=== PATIENT | female | born 1960 | race Caucasian/White ===

== ENCOUNTER 2018-01-13 16:23 | Emergency (ER) | payer MEDICARE, MEDICAID ==
[~2018-01-13] VITALS: Ht 162.6 cm; Wt 70.0 kg
[~2018-01-13 16:23] MED LIST: GABA-338 PO; LEVA15HF4 IH; LISI-600 PO; ONDA8TAB9 PO; OXYC-147 PO; SIMV10TA2 PO
[2018-01-13] MEDS ORDERED: orphenadrine citrate 60mg/2ml inj. IM ONE (16:30)
[2018-01-13] MEDS ORDERED: ORPH100T2 PO (16:30)
[2018-01-13] MEDS ORDERED: HYDROmorphone 1 mg/ml syringe IM ONE (16:30)
[2018-01-13 17:48] VITALS: BP 144/74
== END 2018-01-13 17:50 | disposition home or self-care (01) ==
LOC: ER 16:24
DX: M54.5 Low back pain (principal); G89.29 Other chronic pain; R20.2 Paresthesia of skin; R20.0 Anesthesia of skin; I10 Essential (primary) hypertension; Z90.710 Acquired absence of both cervix and uterus; Z98.890 Other specified postprocedural states; Z88.5 Allergy status to narcotic agent; Z88.8 Allergy status to other drugs, medicaments and biological substances; Z88.6 Allergy status to analgesic agent; Z79.899 Other long term (current) drug therapy
CPT/HCPCS: 96372; 99284; J1170; J2360

== ENCOUNTER 2018-09-21 11:38 | Emergency (ER) | payer MEDICARE, MEDICAID ==
[~2018-09-21] VITALS: Ht 162.6 cm; Wt 74.8 kg
[~2018-09-21 11:38] MED LIST changes: +ORPH100T2 PO
[2018-09-21] MEDS ORDERED: diazepam 5mg tablet PO ONE (12:40)
[2018-09-21] MEDS ORDERED: ketorolac trometh inj. 60 MG/2 ML VIAL IM ONE (12:55)
--- NOTE | 2018-09-21 13:08 | NUR ---
MEDICATED PT PER ORDERS, SOFT COLLAR PLACED BY [facility] TH[facility]ER PER ORDERS
[2018-09-21 13:46] VITALS: BP 136/109
== END 2018-09-21 13:49 | disposition home or self-care (01) ==
LOC: ER 11:39
DX: M62.838 Other muscle spasm (principal); M25.512 Pain in left shoulder; I10 Essential (primary) hypertension; G89.29 Other chronic pain; Z90.710 Acquired absence of both cervix and uterus; Z98.890 Other specified postprocedural states; Z88.8 Allergy status to other drugs, medicaments and biological substances; Z79.899 Other long term (current) drug therapy
CPT/HCPCS: 96372; 99283; J1885

== ENCOUNTER 2019-07-30 17:14 | Emergency (ER) | payer MEDICARE, MEDICAID ==
[~2019-07-30] VITALS: Ht 162.6 cm; Wt 81.9 kg
[2019-07-30] MEDS ORDERED: diphenhydrAMINE 50 mg/ml inj IV ONE (18:00)
[2019-07-30] MEDS ORDERED: morphine 4 MG/ML inj SYRINge IV ONE (18:00)
[2019-07-30] MEDS ORDERED: proCHLORperazine 10 MG/2 ml inj IV ONE (18:00)
[2019-07-30 18:53] LABS: BASOPHILS # (AUTO) 0.1 X10'3 (0-0.2); BASOPHILS % (AUTO) 0.7 % (0-1); EOSINOPHILS % (AUTO) 0.6 % (0-6); HEMATOCRIT 43.9 % (35.0-45.0); HEMOGLOBIN 14.7 g/dl (12.0-16.0); LYMPHOCYTES # (AUTO) 2.3 X10'3 (1.1-4.8); LYMPHOCYTES % (AUTO) 29.1 % (21-51); MEAN CORPUSCULAR HEMOGLOBIN 30.8 PG (27.0-31.0); MEAN CORPUSCULAR HGB CONC 33.5 g/dL (33.0-36.5); MEAN CORPUSCULAR VOLUME 91.7 FL (78-98); MONOCYTES # (AUTO) 0.5 X10'3 (0-0.9); MONOCYTES % (AUTO) 6.5 % (2-12); NEUTROPHILS % (AUTO) 63.1 % (42-75); PLATELET COUNT 276 X10'3 (140-440); RED BLOOD COUNT 4.79 X10'6 (4.20-5.60); RED CELL DISTRIBUTION WIDTH 12.7 % (11.5-14.5)
[2019-07-30 19:04] LABS: CLARITY,URINE SLIGHTLY CLOUDY (Clear); COLOR,URINE STRAW (Yellow); GLUCOSE, URINE NEGATIVE (Neg); KETONES,URINE NEGATIVE (Neg); LEUKOCYTE ESTERASE ,URINE TRACE (Neg); NITRITES, URINE NEGATIVE (Neg); OCCULT BLOOD,URINE NEGATIVE (Neg); PH,URINE 5.5 (4.8-8.0); PROTEIN,URINE NEGATIVE (Neg); UROBILINOGEN,URINE 0.2 E.U/dL (0.2-1.0)
[2019-07-30 19:06] LABS: UA COLLECTION TYPE CLN CATCH MIDSTREAM
[2019-07-30 19:08] LABS: ALANINE AMINOTRANSFERASE 11 U/L (12-78); ALBUMIN 3.7 G/DL (3.4-5.0); ALBUMIN/GLOBULIN RATIO 1.1 (1.1-1.5); ALKALINE PHOSPHATASE 74 IU/L (46-116); ANION GAP 7 (8-16); ASPARTATE AMINO TRANSFERASE 19 U/L (10-37); BILIRUBIN,TOTAL 0.2 MG/DL (0.1-1.0); BLOOD UREA NITROGEN 6 MG/DL (7-18); BUN/CREATININE RATIO 7.6 (6.6-38.0); CALCIUM 9.8 MG/DL (8.5-10.1); CHLORIDE 106 MMOL/L (99-107); CREATININE 0.79 MG/DL (0.40-0.90); GLUCOSE 96 MG/DL (70-104); LIPASE 92 U/L (73-393); POTASSIUM 3.7 MMOL/L (3.5-5.1); SODIUM 144 MMOL/L (135-145); TOTAL CARBON DIOXIDE 30.7 MMOL/L (24-32); eGFR 74 ML/MIN
[2019-07-30 19:17] LABS: RBC,URINE NONE SEEN /HPF (0-2); WBC,URINE 0-4 /HPF (0-4)
[2019-07-30 19:18] LABS: BACTERIA,URINE NONE SEEN /HPF (Neg); SQUAMOUS EPITHELIAL CELL,UR FEW /LPF (FEW)
[2019-07-30] MEDS ORDERED: metroNIDAZOLE-Flagyl 500mg/NS 100 ML IV ONE (19:50)
[2019-07-30] MEDS ORDERED: ciprofloxacin 250mg tablet PO ONE (19:50)
[2019-07-30] MEDS ORDERED: CIPR-259 PO (20:56)
[2019-07-30] MEDS ORDERED: METR-159 PO (20:56)
[2019-07-30] MEDS ORDERED: L. R1CAP4 PO (20:57)
[2019-07-30 21:26] VITALS: BP 127/98
== END 2019-07-30 21:25 | disposition home or self-care (01) ==
LOC: ER 17:15
DX: K52.9 Noninfective gastroenteritis and colitis, unspecified (principal); I10 Essential (primary) hypertension; G89.29 Other chronic pain; Z90.710 Acquired absence of both cervix and uterus; Z90.89 Acquired absence of other organs; Z98.890 Other specified postprocedural states; Z87.891 Personal history of nicotine dependence; Z88.5 Allergy status to narcotic agent; Z88.8 Allergy status to other drugs, medicaments and biological substances; Z79.899 Other long term (current) drug therapy
CPT/HCPCS: 36415; 74177; 80053; 81001; 83690; 85025; 87088; 96365; 96375; 99285; J0780; J1200; J2270; J3490

== ENCOUNTER 2019-08-29 14:13 | Outpatient (CLI) | payer MEDICARE, MEDICAID ==
[~2019-08-29] VITALS: Ht 162.6 cm; Wt 77.1 kg
[~2019-08-29 14:13] MED LIST changes: +L. R1CAP4 PO; +iohexol 300mg/ml 100ml inj. ONE
[2019-08-29] MEDS ORDERED: albuterol 2.5 MG/3 ML nebule NEB ONE (14:55)
== END 2019-08-29 23:59 | disposition home or self-care (01) ==
LOC: RT 14:13
PROVIDERS: ATTEND Family Medicine
DX: J98.8 Other specified respiratory disorders (principal)
CPT/HCPCS: 94060; 94729; 94760; Q9967

== ENCOUNTER 2019-12-13 14:06 | Emergency (ER) | payer MEDICARE, MEDICAID ==
[~2019-12-13] VITALS: Ht 162.6 cm; Wt 78.0 kg
[~2019-12-13 14:06] MED LIST changes: -iohexol 300mg/ml 100ml inj. ONE
[2019-12-13 14:59] LABS: BASOPHILS # (AUTO) 0.1 X10'3 (0-0.2); BASOPHILS % (AUTO) 0.8 % (0-1); EOSINOPHILS # (AUTO) 0.1 X10'3 (0-0.9); EOSINOPHILS % (AUTO) 0.5 % (0-6); HEMOGLOBIN 15.7 g/dl (12.0-16.0); LYMPHOCYTES # (AUTO) 2.6 X10'3 (1.1-4.8); LYMPHOCYTES % (AUTO) 22.2 % (21-51); MEAN CORPUSCULAR HEMOGLOBIN 31.3 PG (27.0-31.0); MEAN CORPUSCULAR VOLUME 91.9 FL (78-98); MEAN PLATELET VOLUME 8.7 FL (7.4-10.4); MONOCYTES # (AUTO) 0.6 X10'3 (0-0.9); MONOCYTES % (AUTO) 5.4 % (2-12); NEUTROPHILS # (AUTO) 8.2 X10'3 (1.8-7.7); NEUTROPHILS % (AUTO) 71.1 % (42-75); PLATELET COUNT 302 X10'3 (140-440); RED CELL DISTRIBUTION WIDTH 13.3 % (11.5-14.5); WHITE BLOOD COUNT 11.6 X10'3 (4.5-11.0)
[2019-12-13 15:21] LABS: ALANINE AMINOTRANSFERASE 23 U/L (12-78); ALBUMIN 3.9 G/DL (3.4-5.0); ALKALINE PHOSPHATASE 77 IU/L (46-116); ANION GAP 9 (8-16); ASPARTATE AMINO TRANSFERASE 16 U/L (10-37); BILIRUBIN,TOTAL 0.2 MG/DL (0.1-1.0); BLOOD UREA NITROGEN 6 MG/DL (7-18); BUN/CREATININE RATIO 8.2 (6.6-38.0); CALCIUM 9.6 MG/DL (8.5-10.1); CHLORIDE 104 MMOL/L (99-107); CREATININE 0.73 MG/DL (0.40-0.90); GLUCOSE 105 MG/DL (70-104); LIPASE 82 U/L (73-393); POTASSIUM 4.2 MMOL/L (3.5-5.1); SODIUM 143 MMOL/L (135-145); TOTAL CARBON DIOXIDE 29.6 MMOL/L (24-32); TOTAL PROTEIN 7.7 G/DL (6.4-8.2); eGFR 82 ML/MIN
[2019-12-13] MEDS ORDERED: morphine 4 MG/ML inj SYRINge IV ONE (16:10)
[2019-12-13] MEDS ORDERED: ondansetron/PF 4mg/2ml inj IV ONE (16:10)
[2019-12-13] MEDS ORDERED: normal saline 1000ml 1,000 ML IV ONE (16:10)
[2019-12-13 17:05] LABS: CLARITY,URINE CLEAR (Clear); COLOR,URINE YELLOW (Yellow); GLUCOSE, URINE NEGATIVE (Neg); KETONES,URINE NEGATIVE (Neg); LEUKOCYTE ESTERASE ,URINE NEGATIVE (Neg); NITRITES, URINE NEGATIVE (Neg); OCCULT BLOOD,URINE NEGATIVE (Neg); PROTEIN,URINE NEGATIVE (Neg); UROBILINOGEN,URINE 0.2 E.U/dL (0.2-1.0)
[2019-12-13 17:06] LABS: UA COLLECTION TYPE CLN CATCH MIDSTREAM
[2019-12-13] MEDS ORDERED: AMOX-422 PO (17:28)
[2019-12-13] MEDS ORDERED: METR500T PO (17:28)
[2019-12-13] MEDS ORDERED: LACT1CAP74 PO (17:28)
[2019-12-13] MEDS ORDERED: ONDA4TAB6 PO (17:31)
[2019-12-13 17:55] VITALS: BP 168/102
== END 2019-12-13 17:57 | disposition home or self-care (01) ==
LOC: ER 14:06
DX: K52.9 Noninfective gastroenteritis and colitis, unspecified (principal); I10 Essential (primary) hypertension; G89.29 Other chronic pain; R19.7 Diarrhea, unspecified; Z90.710 Acquired absence of both cervix and uterus; Z90.89 Acquired absence of other organs; Z98.890 Other specified postprocedural states; Z88.5 Allergy status to narcotic agent; Z88.8 Allergy status to other drugs, medicaments and biological substances; Z79.2 Long term (current) use of antibiotics; Z79.899 Other long term (current) drug therapy
CPT/HCPCS: 36415; 74176; 80053; 81003; 83690; 85025; 96374; 96375; 99285; J2270; J2405; J7030